=== PATIENT | male | born 1980 | race Caucasian/White ===

== ENCOUNTER 2016-08-25 16:39 | Emergency (ER) | payer OTHER ==
[2016-08-25 16:52] VITALS: BP 126/80; PULSE 89; RESP 18; TEMP 96.8
[2016-08-25] MEDS ORDERED: DIPH,PERTUS(ACELL)TETVAC-LF 0.5 ML VIAL IM ONE (17:07)
--- NOTE | 2016-08-25 17:12 | ED ---
Wound/Laceration HPI - General Chief Complaint: Wound/Laceration Stated Complaint: Finger Laceration Time Seen by Provider: 08/25/16 16:56 Source: patient, RN notes reviewed Mode of arrival: ambulatory Limitations: no limitations - History of Present Illness Initial Comments: Patient is a 35-year-old male presents to the emergency room for evaluation of right fifth digit laceration. Patient states she was using a offal trimmer and accidentally cut his finger. Patient denies any tingling to his finger. Patient denies taking blood thinners. Patient states he is not sure when his last tetanus vaccine was. Patient denies any other injuries during incident. - Related Data Home Medications Medication Instructions Recorded Confirmed Ibuprofen [Advil] 800 mg PO Q8H PRN 08/18/16 08/18/16 Previous Rx's Medication Instructions Recorded Ibuprofen [Motrin] 800 mg PO Q6HR PRN #30 tab 08/18/16 Penicillin V Potassium [Pen Vee K] 500 mg PO QID #40 tab 08/18/16 Allergies Allergy/AdvReac Type Severity Reaction Status Date / Time No Known Allergies Allergy Verified 08/18/16 19:19 Review of Systems ROS Statement: Those systems with pertinent positive or pertinent negative responses have been documented in the HPI. ROS Other: All systems not noted in ROS Statement are negative. 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 Limitations: no limitations General appearance: alert, in no apparent distress Head exam: Present: atraumatic, normocephalic, normal inspection Eye exam: Present: normal appearance ENT exam: Present: normal exam Neck exam: Present: normal inspection Respiratory exam: Absent: respiratory distress Right Hand Wrist exam: Present: full ROM, laceration (1cm laceration over palmar distal phalanx of right fifth digit). Absent: normal inspection, tenderness Vascular: Present: normal capillary refill (Capillary refill less than 2 seconds ), radial pulse (2+), ulnar pulse (2+) Back exam: Present: normal inspection Neurological exam: Present: alert, oriented X3, CN II-XII intact, normal gait Psychiatric exam: Present: normal affect, normal mood Skin exam: Present: warm, dry. Absent: rash Course Vital Signs 08/25/16 16:49 Temperature 96.8 F L Pulse Rate 89 Respiratory 18 Rate Blood Pressure 126/80 O2 Sat by Pulse 100 Oximetry Procedures - Laceration Laceration #1 Consent Obtained: verbal consent Indication: laceration Site: other (right fifth finger) Size (cm): 1 Description: linear Depth: simple, single layer Anesthetic Used: lidocaine 1% Anesthesia Technique: local infiltration Amount (mls): 1 Pre-repair: wound explored, irrigated extensively Type of Sutures: nylon Size of Sutures: 6-0 Number of Sutures: 3 Technique: simple, interrupted Patient Tolerated Procedure: well, no complications Medical Decision Making - Medical Decision Making Patient is a 35-year-old male presents to the emergency room for evaluation finger laceration. Laceration repaired with sutures. Patient updated on his tetanus vaccine. Advised patient to return in 7-10 days for suture removal. Patient states he understands everything that was discussed with him. Return parameters discussed. Disposition Clinical Impression: Finger laceration Disposition: HOME SELF-CARE Condition: Good Instructions: Care For Your Stitches (ED), Finger Laceration (ED) Additional Instructions: Do not submerge suture area in water. Clean suture area with a damp cloth. Take Tylenol or Motrin as needed for pain. Please return in 7-10 days for suture removal. If any new symptom arises or symptoms worsen, return to ER as soon as possible. Referrals: None,Stated [Primary Care Provider] - 1-2 days Time of Disposition: 17:30
== END 2016-08-25 17:35 | disposition home or self-care (01) ==
LOC: EC 16:39
DX: S61.216A Laceration without foreign body of right little finger without damage to nail, initial encounter (principal); W29.3XXA Contact with powered garden and outdoor hand tools and machinery, initial encounter
CPT/HCPCS: 12001; 90471; 90715; 99282

== ENCOUNTER 2020-07-21 20:12 | Emergency (ER) | payer BC ==
[2020-07-21 20:25] VITALS: BP 162/98; PULSE 68; RESP 18; TEMP 98.3
--- NOTE | 2020-07-21 21:09 | ED ---
ENT HPI - General Chief complaint: Dental/Oral Stated complaint: Dental Pain Time Seen by Provider: 07/21/20 20:27 Source: patient Mode of arrival: ambulatory Limitations: no limitations - History of Present Illness Initial comments: 39-year-old male presents to emergency Department with a chief complaint of dental pain. States this did not want for past several days. He does report multiple caries on his left upper region. Denies any swelling to the region. However, states the pain is getting more severe. He has been taking Tylenol with some improvement in symptoms. He is not diabetic. States he has not seen a dentist in quite some time. Denies any fevers, chills or facial swelling. - Related Data Home Medications Medication Instructions Recorded Confirmed Ibuprofen [Advil] 800 mg PO Q8H PRN 08/18/16 08/18/16 Previous Rx's Medication Instructions Recorded Ibuprofen [Motrin] 800 mg PO Q6HR PRN #30 tab 08/18/16 Penicillin V Potassium [Pen Vee K] 500 mg PO QID #40 tab 08/18/16 Amoxicillin/Potassium Clav 1 tab PO Q12HR #20 tab 07/21/20 [Augmentin 875-125 Tablet] Allergies Allergy/AdvReac Type Severity Reaction Status Date / Time No Known Allergies Allergy Verified 07/21/20 20:25 Review of Systems ROS Statement: Those systems with pertinent positive or pertinent negative responses have been documented in the HPI. ROS Other: All systems not noted in ROS Statement are negative. 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 Dental carry noted in tooth #18. No signs of a periapical abscess), mucous membranes moist, TM's normal bilaterally, normal external ear exam Neck exam: Present: normal inspection, full ROM. Absent: tenderness, lymphadenopathy Respiratory exam: Present: normal lung sounds bilaterally. Absent: respiratory distress, wheezes, rales, rhonchi Cardiovascular Exam: Present: regular rate, normal rhythm, normal heart sounds Extremities exam: Present: normal inspection, full ROM, normal capillary refill. Absent: tenderness, pedal edema, joint swelling Back exam: Present: normal inspection, full ROM. Absent: tenderness, CVA tenderness (R), CVA tenderness (L) Neurological exam: Present: alert, oriented X3 Psychiatric exam: Present: normal affect, normal mood Skin exam: Present: warm, dry, intact, normal color Course Vital Signs 07/21/20 20:22 Temperature 98.3 F Pulse Rate 68 Respiratory 18 Rate Blood Pressure 162/98 O2 Sat by Pulse 99 Oximetry Medical Decision Making - Medical Decision Making 39-year-old male presents to emergency prompt a chief complaint of dental pain. On physical examination, no signs of periapical abscess. I did start him on Augmentin. We'll discharge her to Tylenol 3 starter pack. I offered dental block, he declined. Advised to follow with dentist. Strict return parameters were thoroughly discussed with patient's attending ago. Case discussed with Disposition Clinical Impression: Toothache Disposition: HOME SELF-CARE Condition: Stable Instructions (If sedation given, give patient instructions): Toothache (ED) Additional Instructions: Please return to the Emergency Department if symptoms worsen or any other concerns. Prescriptions: Amoxicillin/Potassium Clav [Augmentin 875-125 Tablet] 1 tab PO Q12HR #20 tab Is patient prescribed a controlled substance at d/c from ED?: No Referrals: None,Stated [Primary Care Provider] - 1-2 days Time of Disposition: 21:40
[2020-07-21] MEDS ORDERED: ACET/COD 300 MG/30 MG STARTER PACK 6 TAB BTL PO STA (21:40)
[2020-07-21] MEDS ORDERED: AMOXIC-POT CLAV 875MG STARTER PACK 2 TAB BTL PO STA (21:40)
== END 2020-07-21 21:46 | disposition home or self-care (01) ==
LOC: EC 20:12
DX: K08.89 Other specified disorders of teeth and supporting structures (principal); F17.290 Nicotine dependence, other tobacco product, uncomplicated; Z53.29 Procedure and treatment not carried out because of patient's decision for other reasons
CPT/HCPCS: 99282